=== PATIENT | female | born 1990 | race Caucasian/White ===

== ENCOUNTER 2016-06-11 22:24 | Emergency (ER) | payer OTHER ==
[~2016-06-11] VITALS: Ht 160 cm; Wt 97.5 kg
[2016-06-11 22:29] VITALS: BP 154/89
--- NOTE | 2016-06-11 23:20 | NUR ---
PATIENT LEFT WITHOUT BEING SEEN BY DR. Khan. NO FURTHER CARE PROVIDED FOR PATIENT.
== END 2016-06-11 23:20 | disposition left against medical advice (07) ==
LOC: MED 22:29
DX: R10.2 Pelvic and perineal pain (principal); Z53.21 Procedure and treatment not carried out due to patient leaving prior to being seen by health care provider

== ENCOUNTER 2016-06-11 23:57 | Inpatient (IN) | payer OTHER ==
[~2016-06-11] VITALS: Ht 160 cm; Wt 97.1 kg
[2016-06-12] VITALS (8 sets, daily range): BP systolic 99–150; BP diastolic 51–81
--- NOTE | 2016-06-12 01:32 | NUR ---
AMBULATED TO ER BED 4
--- NOTE | 2016-06-12 01:37 | NUR ---
25 Y/O HERE C/O LT SIDED PELVIC / BACK PAIN SINCE 729 TODAY. HX: RT. OVARIAN CYST. DENIES ANY FEVER BUT STATES HAS HAD CHILLS SINCE PAIN STARTED. ER MD AWARED OF IT.
[2016-06-12] MEDS ORDERED: IBUPROFEN 800 MG TAB PO ONE (01:55)
[2016-06-12] MEDS ORDERED: NACL 0.9% 1,000 ML IV ONE ×2 (03:00→04:50)
[2016-06-12] MEDS ORDERED: fentaNYL 0.05 MG/ML VIAL IVP ONE (03:00)
[2016-06-12] MEDS ORDERED: MORPHINE SULFATE 2 MG/ML SYR IVP PRN (04:45)
--- NOTE | 2016-06-12 04:52 | NUR ---
Patient will be admitted to care of DR ELLIOTT. Admited to TELEMETRY. Will go to [id number]. Belongings list completed. Report GIVEN to JENNY CINTRON
--- NOTE | 2016-06-12 04:52 | NUR ---
Note noel in ED - 06/12/16 at 0531 by MARGRAITA atient will be admitted to care of DR ELLIOTT. Admited to TELEMETRY. Will go to [id number]. Jonathan list completed. Report to JENNY CINTRON
--- NOTE | 2016-06-12 04:52 | NUR ---
Note noel in ED - 06/12/16 at 0529 by MARGARITA Patient will be admitted to care of DR ELLIOTT. Admited to MED SURG. Will go to [id number]. Belongings list completed. Report to JENNY CINTRON.
--- NOTE | 2016-06-12 05:11 | NUR ---
PT TRASFERRED TO TELEMETRY VIA Room. AACOMPANIED BY YSABEL RN, AND DWAYNE, EMT. MONITOR ON BED. NO S/S OF DISTRESS ON TRASFER.
--- NOTE | 2016-06-12 05:15 | NUR ---
PATIENT TRANSFERRED FROM ER VIA [facility]. PATIENT ABLE TO AMBULATE FROM [facility] TO BED WITH STEADY GAIT. NO RESPIRATORY DISTRESS, SOB OR DISCOMFORT. PATIENT IS A 25-YEAR-OLD, FEMALE, DIAGNOSIS: OVARIAN CYST. INITIAL ASSESSMENT AND BODY CHECK DONE. PATIENT IS AOX4, SKIN IS INTACT, IV ACCESS TO RIGHT AC 20G, PATENT. DISCUSSED PLAN OF CARE, MEDICATION REGIMENT, AND PAIN MANAGEMENT WITH PATIENT. PATIENT VERBALIZED UNDERSTANDING. PLACED PATIENT ON SAFETY PRECAUTIONS. CALL LIGHT LEFT WITHIN REACH, WILL CONTINUE TO MONITOR.
--- NOTE | 2016-06-12 07:10 | NUR ---
REPORT GIVEN TO DAY NURSEDARWIN. PATIENT RESTING IN BED, ON CELL PHONE, STABLE. NO RESPIRATORY DISTRESS, SOB, OR DISCOMFORT. ALL NEEDS ATTENDED TO DURING SHIFT, CALL LIGHT LEFT WITHIN REACH.
--- NOTE | 2016-06-12 07:11 | NUR ---
RECEIVED PT FROM Oli CINTRON RN AWAKE WHILE LYING ON BED, PT TALKING TO HER PHONE, NO S/S OF RESPIRATORY DISTRESS OR DISCOMFORT, AAOX4, WITH IV ACCESS ON RIGHT AC 20 G INFUSING FLUIDS WELL. NO COMPLAINTS OF PAIN OF THIS TIME. SKIN IS INTACT. DISCUSSED PLAN OF CARE, PT VERBALIZED UNDERSTANDING. CALL LIGHT WITHIN REACH, WILL CONTINUE TO MONITOR.
--- NOTE | 2016-06-12 08:11 | NUR ---
PATIENT HAS BEEN SCREENED AND CATEGORIZED MODERATE NUTRITION RISK. PATIENT WILL BE SEEN WITHIN 3-5 DAYS OF ADMISSION. 06/14/16-06/16/[address]
[2016-06-12] MEDS: ONDANSETRON 4 MG/2 ML VIAL IVP PRN ×2 (08:21→17:32)
--- NOTE | 2016-06-12 08:23 | NUR ---
PT COMPLAINED OF PAIN 8/10 AT LEFT LOWER ABDOMEN. MORPHINE GIVEN VIA IVP. ZOFRAN GIVEN FOR NAUSEA. PO MEDS HELD PT IS NPO. COLACE AND FAMOTIDINE WASTED, PHARMACY INFORMED.
[2016-06-12] MEDS: DOCUSATE SODIUM 100 MG GELCAP PO SCH ×2 (08:27→08:34)
[2016-06-12] MEDS: FAMOTIDINE 20 MG TAB PO SCH ×2 (08:28→08:34)
[2016-06-12] MEDS ORDERED: MORPHINE SULFATE 4 MG/ML SYR IVP PRN (09:00)
[2016-06-12] MEDS: NACL 0.9% 1,000 ML IV SCH ×2 (09:12→16:41)
--- NOTE | 2016-06-12 09:30 | NUR ---
DR. DILLARD WAS HERE TO SEE PT. EXPLAINED TO HER THE PROCEDURE. PT AWARE. PT SIGNED CONSENT FORM. OR WILL BE HERE AT 1200 FOR EXPLOROTOMY LAPAROTOMY, POSSIBLE OVARIAN CYSTECTOMY.
--- NOTE | 2016-06-12 10:00 | NUR ---
PT SITTING COMFORTABLY ON BED WITH RELATIVES AT BEDSIDE. NO S/S OF DISTRESS AT THIS TIME. CALL LIGHT WITHIN REACH, WILL CONTINUE TO MONITOR.
--- NOTE | 2016-06-12 10:46 | NUR ---
CM NOTE INITIAL REVIEW FAXED TO [facility] / FAX# [phone], ATTN: FATMATA #[phone] [id number]
[2016-06-12] MEDS ORDERED: BUPIVACAINE-MPF/EPI 0.5% 30 ML VIAL INJ ONE (10:58)
--- NOTE | 2016-06-12 10:58 | NUR ---
PT LEFT UNIT ON A BED TO OR ACCOMPANIED BY OR NURSES IN STABLE CONDITION.
[2016-06-12] MEDS ORDERED: GLYCOPYRROLATE 0.2 MG/ML VIAL IV ONE (11:25)
[2016-06-12] MEDS ORDERED: PHENYLEPHRINE 10 MG/ML VIAL IV ONE (11:25)
[2016-06-12] MEDS ORDERED: DEXAMETHASONE 4 MG/ML VIAL IVP ONE (11:25)
[2016-06-12] MEDS ORDERED: KETOROLAC 30 MG/ML VIAL IVP ONE (11:25)
[2016-06-12] MEDS ORDERED: ONDANSETRON 4 MG/2 ML VIAL IVP ONE (11:25)
[2016-06-12] MEDS ORDERED: ROCURONIUM 50 MG/5 ML VIAL IV ONE (11:25)
[2016-06-12] MEDS ORDERED: DESFLURANE 240 ML BTL INH ONE (11:25)
[2016-06-12] MEDS ORDERED: METOCLOPRAMIDE 10 MG/2 ML INJ VIAL IVP ONE (11:25)
[2016-06-12] MEDS ORDERED: PROPOFOL 200 MG/20 ML VIAL IV ONE (11:25)
[2016-06-12] MEDS ORDERED: HYDROmorphone 1 MG/ML AMP IVP PRN (12:00)
[2016-06-12] MEDS ORDERED: ONDANSETRON 4 MG/2 ML VIAL IVP PRN (12:00)
[2016-06-12] MEDS ORDERED: HYDROmorphone PFS 2 MG/ML SYR ONE (12:15)
[2016-06-12] MEDS ORDERED: fentaNYL 0.05 MG/ML VIAL ONE (12:15)
[2016-06-12] MEDS: HYDROmorphone PFS 2 MG/ML SYR ONE ×2 (12:23→12:33)
--- NOTE | 2016-06-12 13:05 | NUR ---
PT BACK IN UNIT RECEIVED FROM OR NURSE ASLEEP BUT EASILY AWAKEN, WITH DRESSING AT LOWER ABDOMEN DRY AND INTACT, WITH BRUNNER CATHETER DRAINING YELLOW URINE. NO COMPLAINTS OF PAIN OF THIS TIME. PT PUT ON O2 2LPM PRN, VS STABLE. IV ANTIBIOTIC ADMINISTERED VIA IV, INFUSING WELL. CALL LIGHT WITHIN REACH, WILL CONTINUE TO MONITOR.
--- NOTE | 2016-06-12 15:35 | NUR ---
PT AWAKE AND ORIENTED, NO S/S OF DISTRESS, USING INCENTIVE SPIROMETRY WELL. VS STABLE. CALL LIGHT WITHIN REACH, WILL CONTINUE TO MONITOR.
[2016-06-12] MEDS: HYDROcodone/APAP 7.5/325 MG 1 TAB PO PRN ×2 (15:49→21:35)
--- NOTE | 2016-06-12 15:49 | NUR ---
NORCO GIVEN PO PER DR. VAZ.
--- NOTE | 2016-06-12 16:50 | NUR ---
PT AMBULATING THE HALLWAY ACCOMPANIED BY SCOTT AND JENNY WOODARD. PT FEELS A LITTLE NAUSEATED BUT TOLERABLE.
--- NOTE | 2016-06-12 17:05 | NUR ---
BRUNNER CATHETER REMOVED, PT TOLERATED WELL. ABLE TO AMBULATE FROM BED TO RESTROOM WITH ASSIST. CALL FREDDIE RIVERO, WILL CONTINUE TO MONITOR.
--- NOTE | 2016-06-12 17:10 | NUR ---
PT REQUESTED THE BRUNNER CATHETER TO BE REMOVED. DR VAZ'S ORDER IN THE CHART. REMOVED 10CC OF WATER FROM THE BALLOON. REMOVED BRUNNER CATH W/ EASE. PT TOLERATED THE PROCEDURE WELL. PT THEN WANTED TO GO TO THE BATHROOM. ASSISTED WITH AMBULATION.
--- NOTE | 2016-06-12 18:11 | NUR ---
DINNER SERVED, PT ON CLEAR LIQUID DIET, TOLERATING WELL. NO S/S OF DISTRESS. CALL LIGHT ARTEM RIVERO, WILL CONTINUE TO MONITOR
--- NOTE | 2016-06-12 19:28 | NUR ---
ENDORSED PT TO ARUNA ROJAS FOR CONTINUITY OF CARE IN STABLE CONDITION.
--- NOTE | 2016-06-12 19:29 | NUR ---
RECD. RESTING IN BED, AWAKE, A/OX4. RESPIRATION EVEN AND UNLABORED. ON 02 AT 2 LITERS VIA N/C. IV OF NS INFUSING AT 100 ML/HR, RIGHT AC G 20. INCISION IN THE LOWER ABDOMEN COVERED WITH DRESSING, DRY AND INTACT. ON BILATERAL LEG SEQUENTIALS. REMINDED TO USE INCENTIVE SPIROMETER, CLAIMED SHE HAS BEEN USING IT. PLAN OF CARE FOR THE SHIFT DISCUSSED. VERBALIZED UNDERSTANDING. PAIN IN THE SITE 05/13, INCREASES BY MOVEMENT. WILL MEDICATE ORDERED. AT THE BEDSIDE.
--- NOTE | 2016-06-12 20:00 | NUR ---
Patient's Plan of Care was discussed and reviewed with CORD TIRE BUILDER: BOB POWELL
--- NOTE | 2016-06-12 20:30 | NUR ---
WANTS PAIN MEDICATION BUT DOES NOT WANT MORPHINE, CLAIMED TOO STRONG FOR HER. WILLING TO WAIT FOR TIME FOR NORCO, AGREED TO HAVE TYLENOL INSTEAD, STATED "I'M STARTING TO HAVE HEADACHE".
[2016-06-12] MEDS: ACETAMINOPHEN 325 MG TAB PO PRN (20:33)
--- NOTE | 2016-06-12 22:00 | NUR ---
ASSISTED TWICE TO BR TO VOID, GAIT STEADY. BACK TO BED AFTER VOIDING. MADE COMFORTABLE IN BED WITH PILLOWS.
[2016-06-13] VITALS: BP 105/62
--- NOTE | 2016-06-13 | NUR ---
SLEEPING COMFORTABLY IN BED.
[2016-06-13] MEDS: ONDANSETRON 4 MG/2 ML VIAL IVP PRN (01:57)
[2016-06-13] MEDS: NACL 0.9% 1,000 ML IV SCH ×2 (02:54→12:54)
--- NOTE | 2016-06-13 05:00 | NUR ---
RESTING IN BED, INQUIRED IF SHE WANTS PAIN MEDICATION, STATED I'M OK.
--- NOTE | 2016-06-13 07:20 | NUR ---
RECEIVED REPORT FROM NIGHT NURSE, PT IS AAOX4, ROOM AIR, IV TO RIGHT AC 20 G INFUSING WELL , S/P EXPLORATORY LAP CYSTECTOMY ON 06/12, ABDOMINAL INCISION WITH DRESSING DRY AND INTACT, SCD'S NOTED, INITIAL ASSESSMENT COMPLETED, REVIEWED PLAN OF CARE WITH PT, PT VERBALIZED UNDERSTANDING, ALL SAFETY PRECAUTIONS MET, ALL NEEDS MET, CALL LIGHT WITHIN REACH. WILL CONTINUE TO MONITOR.
--- NOTE | 2016-06-13 07:20 | NUR ---
CONDITION REMAIN STABLE. ENDORSED TO JENNY CONNORS FOR CONTINUITY OF CARE.
[2016-06-13 08:00] VITALS: BP 104/59
[2016-06-13] MEDS: HYDROcodone/APAP 7.5/325 MG 1 TAB PO PRN ×2 (08:14→20:45)
[2016-06-13] MEDS: DOCUSATE SODIUM 100 MG GELCAP PO SCH (08:14)
[2016-06-13] MEDS: FAMOTIDINE 20 MG TAB PO SCH (08:15)
--- NOTE | 2016-06-13 08:15 | NUR ---
DUE MEDICATIONS GIVEN, PT TOLERATED WELL, PT STATES ABD PAIN OF 7/10, MEDICATED PER MD ORDERS. CALL LIGHT WITHIN REACH WILL CONTINUE TO MONITOR.
--- NOTE | 2016-06-13 10:02 | NUR ---
CM NOTE CONCURRENT REVIEW SENT TO [facility] FAX# [phone] ATTN: FATM[facility] # [phone] EXT [id number]
--- NOTE | 2016-06-13 10:35 | NUR ---
CHECKED IN ON PT, PT CURRENTLY AWAKE, ALL NEEDS MET, CALL LIGHT WITHIN REACH WILL CONTINUE TO MONITOR.
--- NOTE | 2016-06-13 12:30 | NUR ---
PROVIDED AN ABDOMINAL BINDER FOR PT, PT WALKING AROUND UNIT, TOLERATED WELL. BACK TO ROOM SAFELY. CALL LIGHT WITHIN REACH WILL CONTINUE TO MONITOR.
[2016-06-13] MEDS: ACETAMINOPHEN 325 MG TAB PO PRN ×2 (13:32→22:15)
--- NOTE | 2016-06-13 14:30 | NUR ---
CHECKED IN ON PT, PT STATES NO PAIN AT THIS TIME, NO S/S OF DISTRESS OR DISCOMFORT NOTED. CALL LIGHT WITHIN REACH
[2016-06-13 16:00] VITALS: BP 117/72
--- NOTE | 2016-06-13 16:40 | NUR ---
RECEIVED REPORT FROM JENNY CONNORS FOR CONTINUITY OF CARE. PT IS RESTING ON BED, NO S/S OF RESPIRATORY DISTRESS OR DISCOMFORT NOTED, ALL NEEDS MET AT THIS TIME, CALL LIGHT WITHIN REACH, WILL CONTINUE TO MONITOR.
--- NOTE | 2016-06-13 17:54 | NUR ---
DRESSING ON LOWER ABDOMEN REMOVED, PT TOLERATED WELL. INCISION IS DRY WITH DUNCAN. ABDOMINAL PAD APPLIED AND ABDOMINAL BINDER. PT NO COMPLAINTS OF PAIN AT THIS TIME. WILL CONTINUE TO MONITOR.
--- NOTE | 2016-06-13 19:12 | NUR ---
ENDORSED PT TO JENNY AN IN STABLE CONDITION FOR CONTINUITY OF CARE
--- NOTE | 2016-06-13 19:13 | NUR ---
RECEIVED REPORT FROM DAYSHIFT RN FOR CONTINUITY OF CARE. PATIENT IS A&OX4, DISCUSSED PLAN OF CARE, VERBALIZED UNDERSTANDING. SHIFT ASSESSMENT DONE, VS TAKEN, STABLE. NO S/S OF RESPIRATORY DISTRESS NOTED ON ROOM AIR. PATIENT C/O HEADACHE, WILL MEDICATE PER MD ORDER. IV RT AC 20 GAUGE PATENT AND INFUSING FLUIDS WELL. PT S/P EXP LAP ON 06/12, ABDOMINAL INCISION DRESSING DRY AND INTACT, NO DRAINAGE NOTED. SAFETY PRECAUTIONS ENFORCED. PT REFUSED SCDS AT THIS TIME SINCE SHE IS AMBULATING FREQUENTLY. CALL LIGHT WITHIN REACH. WILL CONTINUE TO MONITOR
[2016-06-13 20:00] VITALS: BP 112/62
--- NOTE | 2016-06-13 20:45 | NUR ---
PT C/O 10/11 HEADACHE, MEDICATED PER MD ORDER. CALL LIGHT WITHIN REACH.
--- NOTE | 2016-06-13 22:15 | NUR ---
PT C/O PERSISTENT HEADACHE, MEDICATED PER MD ORDER. PT IS AWAKE WATCHING A MOVIE IN BED. CALL LIGHT WITHIN REACH.
[2016-06-14] VITALS: BP 118/71
--- NOTE | 2016-06-14 00:12 | NUR ---
VS TAKEN, STABLE. PT IS AWAKE WATCHING TV, NO S/S OF DISTRESS OR DISCOMFORT NOTED. CALL LIGHT PLACED WITHIN REACH.
--- NOTE | 2016-06-14 02:24 | NUR ---
PT IS SLEEPING. NO S/S OF DISTRESS OR DISCOMFORT NOTED. CALL LIGHT WITHIN REACH.
--- NOTE | 2016-06-14 04:43 | NUR ---
PATIENT IS ASLEEP. NO S/S OF RESPIRATORY DISTRESS OR DISCOMFORT NOTED.
[2016-06-14] MEDS: HYDROcodone/APAP 7.5/325 MG 1 TAB PO PRN (05:30)
--- NOTE | 2016-06-14 07:10 | NUR ---
ENDORSED PATIENT TO DAYSHIFT RN FOR CONTINUITY OF CARE, PATIENT IS STABLE.
--- NOTE | 2016-06-14 07:11 | NUR ---
RECEIVED REPORT FROM JENNY AN. PT IS AAOX4. PT ON ROOM AIR WITH NO S/S OF DISTRESS NOTED. IV TO RIGHT AC #20, PATENT AND INTACT. DRESSING TO LOWER ABDOMEN NOTED, DRESSING INTACT. NO N/V OR PAIN INDICATED. ALL SAFETY PRECAUTIONS IN PLACE, SIDE RAILSX2, BED IN LOW POSITION, AND CALL LIGHT WITHIN REACH. WILL CONTINUE TO MONITOR.
[2016-06-14 07:55] VITALS: BP 94/53
[2016-06-14] MEDS: DOCUSATE SODIUM 100 MG GELCAP PO SCH (09:01)
[2016-06-14] MEDS: ACETAMINOPHEN 325 MG TAB PO PRN (09:02)
[2016-06-14] MEDS: FAMOTIDINE 20 MG TAB PO SCH (09:02)
--- NOTE | 2016-06-14 09:04 | NUR ---
PT TOLERATED MEDS WELL. PT C/0 12/11 HEADACHE, ADMINISTERED TYLENOL ORDERED. WILL CONTINUE TO MONITOR.
[2016-06-14] MEDS ORDERED: IBUPROFEN600 M1 PO (09:47)
[2016-06-14] MEDS ORDERED: NORCO 325 MG-51 TAB PO ×2 (09:47→10:26)
[2016-06-14] MEDS ORDERED: FLUCONAZOLE 100 MG TAB PO SCH (10:00)
--- NOTE | 2016-06-14 10:18 | NUR ---
PT TOLERATED MEDS WELL. WOUND CARE PROVIDED, PT EDUCATED. PT VERBALIZED UNDERSTANDING.
--- NOTE | 2016-06-14 11:15 | NUR ---
PT HAS BEEN DISCHARGED. ALL PAPERWORK SIGNED. ALL QUESTIONS ANSWERED. ALL BELONGINGS AND PRESCRIPTIONS IN PT POSSESSION. IV DC'ED WITH CANNULA INTACT. WRISTBANDS REMOVED. NOTIFIED FIFTH HAND. PT WHEELED OUT OF UNIT WITH FAMILY PRESENT AT BEDSIDE. PT AMBULATED TO VEHICLE WITH STEADY GAIT. PT IN STABLE CONDITION.
== END 2016-06-14 11:15 | disposition home or self-care (01) | DRG 511 ==
LOC: MED 23:57 → MTU 06-12 04:47
PROVIDERS: ADMIT Family Medicine; ATTEND Family Medicine
PROC: 0UT10ZZ Resection of Left Ovary, Open Approach (ICD-10-PCS; principal; 2016-06-12 12:00)
DX: C56.2 Malignant neoplasm of left ovary (principal); E87.8 Other disorders of electrolyte and fluid balance, not elsewhere classified; E44.0 Moderate protein-calorie malnutrition; E66.01 Morbid (severe) obesity due to excess calories; Z68.38 Body mass index [BMI] 38.0-38.9, adult; B37.49 Other urogenital candidiasis; Z71.3 Dietary counseling and surveillance; Z90.49 Acquired absence of other specified parts of digestive tract

== ENCOUNTER 2016-06-14 20:15 | Emergency (ER) | payer OTHER ==
[~2016-06-14] VITALS: Ht 160 cm; Wt 97.5 kg
[~2016-06-14 20:15] MED LIST: IBUPROFEN600 M1 PO; NORCO 325 MG-51 TAB PO
[2016-06-14 21:08] VITALS: BP 106/69
--- NOTE | 2016-06-14 22:06 | NUR ---
PT TAKEN TO BED 6
--- NOTE | 2016-06-14 22:17 | NUR ---
Dr. Khan evaluating patient at bedside.
--- NOTE | 2016-06-14 22:18 | NUR ---
25Y/F PATIENT BIB FAMILY TO ED WITH C/O SUTURE CHECK. HAD OVARIAN CYST REMOVAL LAST . STATES A STAPLE CAME OUT AND BLEEDING AT SITE. DENIES ANY PAIN AT THIS TIME ; SKIN IS PINK/WARM/DRY; AAOX4 WITH EVEN AND STEADY GAIT; LUNGS CLEAR BL; HR EVEN AND REGULAR; PT DENIES ANY FEVER, CP, SOB, OR COUGH AT THIS TIME; PATIENT STATES PAIN OF 0/10 AT THIS TIME; VSS; PATIENT POSITIONED FOR COMFORT; HOB ELEVATED; BEDRAILS UP X2; BED DOWN. ER MD MADE AWARE OF PT STATUS.
--- NOTE | 2016-06-14 22:35 | NUR ---
Patient discharged with v/s stable. Written and verbal after care instructions given and explained. Patient verbalized understanding. Ambulatory with steady gait. All questions addressed prior to discharge. Advised to follow up with PMD.
[2016-06-14 22:40] VITALS: BP 106/69
== END 2016-06-14 22:35 | disposition home or self-care (01) ==
LOC: MED 20:15
DX: Z48.89 Encounter for other specified surgical aftercare (principal)

== ENCOUNTER 2019-01-13 11:23 | Emergency (ER) | payer OTHER ==
[~2019-01-13] VITALS: Ht 160 cm; Wt 111.1 kg
[~2019-01-13 11:23] MED LIST changes: +HYDR-5122 PO; +IBUP-2213 PO; -IBUPROFEN600 M1 PO; -NORCO 325 MG-51 TAB PO
[2019-01-13 11:35] VITALS: BP 116/78
--- NOTE | 2019-01-13 11:45 | NUR ---
PT C/O N/V/D X 7 DAYS. PT SLIGHT ABDOMINAL DISCOMFORT W/ 2/10 CRAMPING PAIN. DENIES FEVER, DYSURIA. PATIENT STATES PAIN OF 2/10 AT THIS TIME; VSS; PATIENT POSITIONED FOR COMFORT; HOB ELEVATED; BEDRAILS UP X1; BED DOWN. ER MD MADE AWARE OF PT STATUS.
--- NOTE | 2019-01-13 13:10 | NUR ---
PT IS RESTING IN BED WITH EYES OPENED.
[2019-01-13] MEDS ORDERED: ONDANSETRON 4 MG ODT PO ONE (13:25)
[2019-01-13] MEDS ORDERED: DICYCLOMINE HCL LIQUID 10 MG/5 ML UDC PO ONE (13:25)
--- NOTE | 2019-01-13 14:45 | NUR ---
PT IS WILLING TO GO HOME AND [facility]ATHER [employer] HER KIDS FROM SCHOOL. DR. MENDOZA NOTIFIED.
[2019-01-13 15:35] VITALS: BP 113/73
--- NOTE | 2019-01-13 15:35 | NUR ---
Patient discharged with v/s stable. Written and verbal after care instructions given and explained. Patient alert, oriented and verbalized understanding of instructions. Ambulatory with steady gait. All questions addressed prior to discharge. ID band removed. Patient advised to follow up with PMD. Rx of Bentyl and Zofran given. Patient educated on indication of medication including possible reaction and side effects. Opportunity to ask questions provided and answered.
== END 2019-01-13 15:35 | disposition home or self-care (01) ==
LOC: MED 11:23
DX: B34.9 Viral infection, unspecified (principal); Z79.899 Other long term (current) drug therapy
CPT/HCPCS: 81002; 81025; 99283; Q0162

== ENCOUNTER 2020-05-10 14:11 | Emergency (ER) | payer OTHER ==
[~2020-05-10] VITALS: Ht 172.7 cm; Wt 113.4 kg
[2020-05-10 14:37] VITALS: BP 115/63
--- NOTE | 2020-05-10 16:04 | NUR ---
PT SEEN AND EVALUATED BY YANNA ROLDAN
[2020-05-10 16:20] VITALS: BP 122/70
--- NOTE | 2020-05-10 16:25 | NUR ---
Patient discharged with v/s stable. Written and verbal after care instructions given and explained. Patient alert, oriented and verbalized understanding of instructions. Ambulatory with steady gait. All questions addressed prior to discharge. ID band removed. Patient advised to follow up with PMD. Rx of TESSALON PERLES, ALBUTEROL, ACETOMINOPHEN given. Patient educated on indication of medication including possible reaction and side effects. Opportunity to ask questions provided and answered.
== END 2020-05-10 16:25 | disposition home or self-care (01) ==
LOC: MED 14:11
DX: U07.1 COVID-19 (principal); Z79.899 Other long term (current) drug therapy
CPT/HCPCS: 71045; 99284

== ENCOUNTER 2021-02-16 18:28 | Emergency (ER) | payer OTHER ==
[~2021-02-16] VITALS: Ht 160 cm; Wt 99.8 kg
[2021-02-16 18:35] VITALS: BP 136/81
--- NOTE | 2021-02-16 18:53 | NUR ---
PT AMB TO BED 4.
--- NOTE | 2021-02-16 18:58 | NUR ---
DR. STRONG AT PT BEDSIDE FOR FURTHER EVALUATION.
--- NOTE | 2021-02-16 18:59 | NUR ---
30 Y/O FEMALE C/O BILATERAL SHOULDER, NECK, R THIGH, R ANKLE PAIN S/P TC X TODAY. PT WAS A FRONT PASSENGER. +DEPLOYMENT. + [employer]. DENIES LOC. DENIES PMH NKA
[2021-02-16] MEDS ORDERED: ACETAMINOPHEN 650 MG SUPP RC ONE (19:10)
[2021-02-16] MEDS ORDERED: ACETAMINOPHEN 325 MG TAB PO ONE (19:25)
--- NOTE | 2021-02-16 19:26 | NUR ---
GAVE REPORT TO JENNY RIZVI. TRANSFER OF CARE AT THIS TIME.
--- NOTE | 2021-02-16 19:31 | NUR ---
PT TAKEN TO RAD
--- NOTE | 2021-02-16 19:56 | NUR ---
patient back from xr via w/c
--- NOTE | 2021-02-16 20:21 | NUR ---
Dr. Vance examining patient.
--- NOTE | 2021-02-16 20:53 | NUR ---
Patient discharged with v/s stable. Written and verbal after care instructions given and explained. Patient verbalized understanding. Ambulatory with steady gait and ID band removed. All questions addressed prior to discharge. Advised to follow up with PMD.
[2021-02-16 20:54] VITALS: BP 162/78
== END 2021-02-16 20:53 | disposition home or self-care (01) ==
LOC: MED 18:28
DX: M54.2 Cervicalgia (principal); M79.651 Pain in right thigh; M25.571 Pain in right ankle and joints of right foot; Z79.1 Long term (current) use of non-steroidal anti-inflammatories (NSAID); Z79.891 Long term (current) use of opiate analgesic
CPT/HCPCS: 72125; 73610; 99284

== ENCOUNTER 2023-06-22 12:42 | Emergency (ER) | payer OTHER ==
[~2023-06-22] VITALS: Ht 160 cm; Wt 119.3 kg
[2023-06-22 13:00] VITALS: BP 133/77; PULSE 88; RESP 16; TEMP 97.2; O2SAT 97
[2023-06-22] MEDS ORDERED: NAPR-1704 PO (13:47)
[2023-06-22] MEDS ORDERED: METH1ADH21 TP (13:47)
[2023-06-22] MEDS: KETOROLAC 30 MG/ML VIAL IM ONE (13:51)
== END 2023-06-22 13:58 | disposition home or self-care (01) ==
LOC: MED 12:42
DX: M54.30 Sciatica, unspecified side (principal); Z79.899 Other long term (current) drug therapy; Z90.49 Acquired absence of other specified parts of digestive tract
CPT/HCPCS: 81002; 81025; 96372; 99283; J1885